=== PATIENT | female | born 1975 | race Caucasian/White ===

== ENCOUNTER → 2019-10-21 | Outpatient (CLI) | payer BC ==
--- NOTE | 2019-10-21 10:17 | Diagnostic Imaging Report ---
EXAMINATION: CT Abdomen Pelvis without contrast. TECHNIQUE: Multiple contiguous axial images were obtained through the abdomen and pelvis without the use of intravenous contrast. All CT scans use one or more of the following dose optimizing techniques: automated exposure control, MA and/or KvP adjustment based on a patient size and exam type, or iterative reconstruction. HISTORY: Left flank pain. COMPARISON: None available. FINDINGS: Limited views of the lower thorax are unremarkable. The liver is normal without focal lesion. There is no biliary ductal dilation. Gallbladder is normal. Pancreas is normal. Spleen is normal. There is a 3.3 cm left adrenal adenoma. There are bilateral 3 mm nonobstructing renal stones. There are no ureteral stones. There is no hydronephrosis. Urinary bladder is normal. Visualized bowel is normal in caliber without obstruction or inflammation. No free fluid or air. No abdominal or pelvic lymphadenopathy. Aorta is normal in caliber without aneurysm. There are no suspicious osseus lesions. IMPRESSION: 1. Bilateral nonobstructing renal stones, no ureteral calculi. 2. Benign left adrenal adenoma measuring 3.3 cm. Dictated by: Dictated on workstation # [id number]
== END ==
LOC: RAD 09:46
DX: D35.02 Benign neoplasm of left adrenal gland (principal); N20.0 Calculus of kidney
CPT/HCPCS: 74176

== ENCOUNTER 2019-10-26 14:30 | Outpatient (RCR) | payer BC ==
[2019-10-26 15:02] LABS: BUN/CREATININE RATIO 19; CALCIUM 9.5 MG/DL (8.5-10.1); CARBON DIOXIDE 25 MMOL/L (21-32); CHLORIDE 105 MMOL/L (98-107); CREATININE SERUM 0.73 MG/DL (0.60-1.30); GFR ESTIMATED > 60; GLUCOSE 93 MG/DL (70-105); PHOSPHORUS 3.7 MG/DL (2.3-4.7); POTASSIUM 3.9 MMOL/L (3.6-5.0); SODIUM 141 MMOL/L (135-145); URIC ACID 6.2 MG/DL (2.6-7.2)
== END 2020-01-24 | disposition home or self-care (01) ==
LOC: LAB 14:30
PROVIDERS: ATTEND Urology
DX: N20.0 Calculus of kidney (principal)
CPT/HCPCS: 36415; 80048; 83970; 84100; 84550

== ENCOUNTER → 2019-10-26 | Outpatient (CLI) | payer BC ==
--- NOTE | 2019-10-26 13:11 | Diagnostic Imaging Report ---
INDICATION: Nephrolithiasis. EXAMINATION: KUB at 12:58 PM. FINDINGS: The bowel gas pattern is normal. There is a moderate amount of stool in the colon which overlies the kidneys. There is a 3.5 mm opacity projecting over the upper pole of the right kidney that could be a calculus. IMPRESSION: Questionable right nephrolithiasis. Dictated by: Dictated on workstation # [id number]
== END ==
LOC: RAD 12:29
PROVIDERS: ATTEND Urology
DX: N20.0 Calculus of kidney (principal)
CPT/HCPCS: 74018

== ENCOUNTER 2021-03-15 13:21 | Emergency (ER) | payer BC, OTHER ==
[~2021-03-15] VITALS: Ht 167.4 cm; Wt 104.2 kg
--- OUTSIDE RECORDS SUMMARY | 2021-03-15 13:30 | XMS REPORT | Clinical Summary ---
Author Author [facility] Organization [facility] Address Unknown Phone Unavailable Care Team Providers Care Lap Maker Name Role Phone Servando Diaz MD Unavailable Viridiana Napoles MD PCP Source Comments Some departments are not documenting in the electronic medical record. If you d o not see the information that you expected, contact Release of Information in [facility] freee Information Management department at [phone] for further assistan ce in locating additional records.[facility] Allergies Comments Active Allergy Reactions Severity Noted Date Codeine HIVES 03/10/2012 Latex UNKNOWN 03/10/2012 Penicillin G HIVES 03/10/2012 Medications End Date Status Medication Sig Dispensed Refills Start Date Active traZODone (DESYREL) 100 Take 100 mg 0 mg tablet by mouth at bedtime daily. Active clonazePAM (KLONOPIN) 1 Take 1 mg by 0 mg tablet mouth daily as needed. Active PARoxetine (PAXIL) 10 mg Take 1 Tab by 1 Tab 3 tablet mouth daily. 2 Active Problems Problem Noted Date Depression 03/19/2012 Spells 03/19/2012 Overdose drug 03/19/2012 Social History Date Tobacco Use Types Packs/Day Years Used Former Smoker Cigarettes 0.5 17 Sex Assigned at Date Recorded Not on file Last Filed Vital Signs Reading Time Taken Comments Vital Sign 115/76 03/16/2012 11:54 AM [employer] Blood Pressure 72 03/16/2012 12:00 PM [employer] Pulse 36.3 C (97.3 F) 03/16/2012 11:54 AM [employer] Temperature - - Respiratory Rate 99% 03/16/2012 11:54 AM [employer] Oxygen Saturation - - Inhaled Oxygen Concentration 90.2 kg (198 lb 13.7 oz) 03/10/2012 6:02 PM [employer] Weight 167.6 cm (5' 6") 03/10/2012 6:02 PM [employer] Height 32.1 03/10/2012 6:02 PM [employer] Body Mass Index Plan of Treatment Health Maintenance Due Date Last Done Comments HIV SCREENING 1990 DTAP/TDAP VACCINES (1 - 1993 Tdap) HEPATITIS C SCREENING 1993 PHYSICAL (COMPREHENSIVE) 1993 EXAM CERVICAL CANCER SCREENING 01/14/1996 BREAST CANCER SCREENING 2015 INFLUENZA VACCINE 11/05/2020 Results Not on filefrom Last 3 Months Advance Directives Patient Clerk General Explanation Type Date Recorded Advance 08/02/2014 1:59 PM Directive/DPOA Date Inactivated Comments Code Status Date Activated 03/16/2012 4:32 PM Full Code 03/10/2012 5:58 PM Provider has discussed Code Status No, more discussi on w/Patient or Family? needed Care Teams Start Date End Date Lap Maker Relationship Specialty 08/02/14 Viridiana Napoles MD PCP - General [address] [address] 03/10/12 Servando Diaz MD Neurology [address] [place], [place] [id number]
--- OUTSIDE RECORDS SUMMARY | 2021-03-15 13:30 | XMS REPORT | Clinical Summary ---
Author Author [facility] Organization [facility] Address Unknown Phone Unavailable Care Team Providers Care Washer Carcass Name Role Phone PCP Unavailable Allergies Not on File Medications Not on file Active Problems Not on file Social History Date Tobacco Use Types Packs/Day Years Used Never Assessed Sex Assigned at Date Recorded Not on file Last Filed Vital Signs Not on file Plan of Treatment Not on file Results Not on filefrom Last 3 Months
--- NOTE | 2021-03-15 13:43 | ED General ---
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 The injuries occurred at work just prior to ED arrival while attempting to apprehend a pit bull. The pitbull has not been vaccinated for rabies and is currently under quarantine. Patient has puncture wounds consistent with front canine in her left thigh and deep abrasions/excoriations consistent with dog bite to right bicep. Patient with moderate bruising and swelling to these locations. Bleeding controlled. Patient's tetanus is out of date. No other symptoms or complaints. Timing/Duration: 1 Hour Severity: Moderate Modifying Factors: improves with Other Associated Systoms: Other Allergies and Home Medications Allergies Coded Allergies: Penicillins (Verified Allergy, Unknown, 03/15/21) Patient Home Medication List Home Medication List Reviewed: Yes Review of Systems Review of Systems Constitutional: see HPI Skin: see HPI Physical Exam Vital Signs Vital Signs - First Documented 03/15/21 13:28 Temp 36.5 Pulse 107 Resp 16 B/P (MAP) 153/97 (115) Pulse Ox 95 O2 Delivery Room Air Capillary Refill : Height, Weight, BMI Height: '" Weight: lbs. oz. kg; BMI Method: General Appearance: No Apparent Distress, WD/WN Eyes: Bilateral Eye Normal Inspection, Bilateral Eye PERRL, Bilateral Eye EOMI HEENT: PERRL/EOMI Respiratory: Lungs Clear Extremity: Other (Left anterior mid thigh, imprint bites consistent with front canine. Wounds are well approximated with minimal soft tissue defect. Right medial bicep excoriation/deep abrasions consistent with dog bite. Moderate bruising and swelling to both regions. Bleeding is controlled, wounds are clean.) Focused Exam Sepsis Stage: Ruled Out Progress/Results/Core Measures Suspected Sepsis SIRS Temperature: Pulse: Respiratory Rate: Blood Pressure / Mean: Results/Orders My Orders Orders - ITA MURCIA DO Doxycycline Hyclate Tablet (Vibramycin T (03/15/21 13:45) Ibuprofen Tablet (Motrin Tablet) (03/15/21 14:00) Dipht,Pertuss(Acell),Tet Adult (Boostrix (03/15/21 14:15) Medications Given in ED Current Medications Medications Dose Ordered Sig/Nikkie Route Start Time Stop Time Status Last Admin Dose Admin Ibuprofen 800 mg ONCE ONCE PO 03/15/21 14:00 03/15/21 14:01 DC 03/15/21 14:00 800 MG Vital Signs/I&O 03/15/21 13:28 Temp 36.5 Pulse 107 Resp 16 B/P (MAP) 153/97 (115) Pulse Ox 95 O2 Delivery Room Air Capillary Refill : Departure Communication (Admissions) Animal bites clean. Antibiotics and pain medication given. Tetanus updated. Typical wound care/animal bite instructions provided. Patient is well acquainted with the rabies protocol. She verbalizes understanding and agreement discharge instructions prior to departure Impression Primary Impression: Dog bite Disposition: HOME, SELF-CARE Condition: Stable Departure-Patient Inst. Decision time for Depature: 14:11 Referrals: NO,LOCAL PHYSICIAN (PCP/Family) Primary Care Physician Patient Instructions: Animal Bites ED Add. Discharge Instructions: Please take ibuprofen for pain and doxycycline as prescribed. Keep wounds clean covered in bandage. Follow-up with PCP or work comp physician for reevaluation and further recommendations. Return to the ED if signs of infection. All discharge instructions reviewed with patient and/or family. Voiced understanding. Scripts Doxycycline Hyclate (Doxycycline Hyclate) 100 Mg Tablet 100 MG PO BID, #20 TAB 0 Refills Prov: ITA MURCIA DO 03/15/21 ITA MURCIA DO Mar 15, 2021 13:43
[2021-03-15] MEDS ORDERED: DOXYCYCLINE 100 MG (VIBRAMYCIN) TABLET PO NR (13:45)
[2021-03-15] MEDS ORDERED: IBUPROFEN 800 MG (MOTRIN) TAB PO ONE (14:00)
[2021-03-15] MEDS ORDERED: DOXY100T2 PO (14:13)
[2021-03-15] MEDS ORDERED: TETANUS,DIPTH,PERTUSS P/F (BOOSTRIX) 0.5 ML VIAL IM ONE (14:15)
[2021-03-15 14:23] VITALS: BP 153/97
== END 2021-03-15 14:17 | disposition home or self-care (01) ==
LOC: EDUNIT# 13:21 → ER FS 13:24
DX: S71.152A Open bite, left thigh, initial encounter (principal); Z23 Encounter for immunization; W54.0XXA Bitten by dog, initial encounter
CPT/HCPCS: 90715; 99283

== ENCOUNTER 2021-08-26 15:40 | Emergency (ER) | payer BC, OTHER ==
[~2021-08-26] VITALS: Ht 165 cm; Wt 82.0 kg
[~2021-08-26 15:40] MED LIST: DOXY100T2 PO
[2021-08-26 16:01] VITALS: BP 163/106
--- NOTE | 2021-08-26 16:02 | ED Upper Extremity ---
General Chief Complaint: Bite-Animal/Human/Insect Stated Complaint: RT ARM DOG BITE Source: patient History of Present Illness Date Seen by Provider: August 26, 2021 Time Seen by Provider: 15:44 Initial Comments 46-year-old female presenting with complaint of dog bite to the right arm. She was visiting a dog that she had kenneled as a puppy but then it had bit her so it is in [facility] at a rehabilitation program for dogs. She states that she had been with the dog for a few hours but then one of the men at the facility started coming down the murcia. When they did the the dog does not like men and it had tried to get to the man. Since she had him on the leash when he reached the end of the leash he turned around and came after her. He bit down on her right forearm breaking the skin and causing bleeding. She does have bruising and swelling. She feels like there is increased pain if she tries to move her pinky and ring finger on the right hand. She feels like there is tingling and numbness in her pinky and ring finger. This happened over an hour and a half prior to arrival in the ED as she drove all the way here from the incident. She states her tetanus was boosted when she was here a few months ago for the initial dog bite from this animal. Onset: this afternoon Severity: moderate Pain/Injury Location: right forearm Method of Injury: other (dog bite) Modifying Factors: Worse With Movement Allergies and Home Medications Allergies Coded Allergies: Penicillins (Verified Allergy, Unknown, 03/15/21) Patient Home Medication List Home Medication List Reviewed: Yes Clindamycin HCl (Clindamycin HCl) 300 Mg Capsule, 300 MG PO TID Prescribed by: ONEYDA BECK on 08/26/21 1608 Doxycycline Hyclate (Doxycycline Hyclate) 100 Mg Tablet, 100 MG PO BID Prescribed by: ONEYDA BECK on 08/26/21 1608 Hydrocodone/Acetaminophen (Hydrocodone-Acetamin 5-325 mg) 5 Mg-325 Mg Tablet, 1 TAB PO Q6H PRN for PAIN-SEVERE (8-10) Prescribed by: ONEYDA BECK on 08/26/21 1611 Ibuprofen (Ibuprofen) 800 Mg Tablet, 800 MG PO Q8H PRN for PAIN Prescribed by: ONEYDA BECK on 08/26/21 1611 Discontinued Medications Doxycycline Hyclate (Doxycycline Hyclate) 100 Mg Tablet, 100 MG PO BID Prescribed by: ITA MURCIA on 03/15/21 1413 Review of Systems Constitutional: No chills, No fever EENTM: no symptoms reported Respiratory: no symptoms reported Cardiovascular: no symptoms reported Gastrointestinal: no symptoms reported Genitourinary: no symptoms reported Musculoskeletal: see HPI Skin: see HPI Psychiatric/Neurological: See HPI Past Uffxrfe-Cukujr-Ndlipd Hx Patient Social History Tobacco Use?: Yes Tobacco type used: Cigarettes Past Medical History Surgery/Hospitalization HX: Hysterectomy; Back surgery; Jaw fracture; Right arm compound fracture. Physical Exam Vital Signs Vital Signs - First Documented 08/26/21 16:01 Temp 36.5 Pulse 103 Resp 18 B/P (MAP) 163/106 (125) Pulse Ox 97 O2 Delivery Room Air Capillary Refill : Height, Weight, BMI Height: '" Weight: lbs. oz. kg; 37.00 BMI Method: General Appearance: WD/WN, mild distress HEENT: PERRL/EOMI, normal ENT inspection Neck: non-tender, full range of motion, supple, normal inspection Cardiovascular: normal peripheral pulses Elbow/Forearm: Right, abrasions, ecchymosis, limited ROM (due to pain from puncture wounds and bruising to right forearm), pain, soft tissue tenderness, swelling Hand: Right, limited ROM (pinky and ring finger of right hand due to pain in fo rearm with movement. ), stiffness Neurologic/Tendon: other (she has intact light touch on pinky and ring finger of right hand but states that they are tingling. She has minimal movement both flexion and extension of pinky and ring finger of right hand limited by pain in forearm) Neurologic/Psychiatric: alert, oriented x 3 Skin: warm/dry Progress/Results/Core Measures Results/Orders My Orders Orders - ONEYDA BECK MD Ibuprofen Tablet (Motrin Tablet) (08/26/21 16:13) Doxycycline Hyclate Tablet (Vibramycin T (08/26/21 16:13) Clindamycin Capsule (Cleocin Capsule) (08/26/21 16:13) Vital Signs/I&O 08/26/21 16:01 Temp 36.5 Pulse 103 Resp 18 B/P (MAP) 163/106 (125) Pulse Ox 97 O2 Delivery Room Air Progress Progress Note : Progress Note Patient states that the wounds were cleaned with irrigation and hydrogen peroxide at the time of injury. Then she drove to come here to the emergency de partment rather than be seen locally. She has puncture allred on each side of her forearm and hematoma to the right forearm on the flexor surface. She has increased tenderness with palpation and movement. Wounds were cleaned with chlorhexidine scrub soap and sterile water here in the ED. Antibiotic ointment and nonstick dressing was applied and then placed in a aluminum foam volar splint. Counseled to keep the wounds clean and dry and apply antibiotic ointment at least 2-3 times a day. Started on antibiotics for dog bite. Since he states that she has a penicillin allergy will do doxycycline and clindamycin. Prescribed ibuprofen and a few hydrocodone in case she needs something stronger for pain. Advised to check with the clinic this week about her injury and if her symptoms worsen and she has signs of compartment syndrome with increasing pressure then be seen emergently so orthopedics can evaluate her. Otherwise if she is not having improvement then orthopedics may still need to see her and see if she needs an ultrasound or MRI to evaluate for possible torn muscles or nerve or tendon damage. Departure Impression Primary Impression: Open wound of right forearm due to dog bite Additional Impression: Crushing injury of right forearm, initial encounter Disposition: 01 HOME, SELF-CARE Condition: Stable Departure-Patient Inst. Decision time for Depature: 16:01 Referrals: CHRIS VALENZUELA,LOCAL PHYSICIAN (PCP) Primary Care Physician LUDIN STOCK MD [facility] [phone] to make appointment or follow up with your primary care provider Patient Instructions: Animal Bites ED, Wound Care ED Add. Discharge Instructions: Keep wounds clean and covered. Apply antibiotic ointment 2-3 times a day and as needed. Use the splint for the next 7 to 10 days to let the swelling and bruising heal. If you are still having trouble moving your pinky and ring fingers, sensation is not improving, or if you have worsening pain despite the splint, elevation and rest then follow up sooner to see if Orthopedics needs to check the pressure inside your arm. If the pressure builds up too high from the crush injury of the bite and the bruising and swelling you can have the whole hand go numb or have increasing pain that is not improved with medication. Again, if this happens you would need a surgeon to operate on your arm to relieve the pressure Take the full course of antibiotics to treat for dog bite and help prevent infection. All discharge instructions reviewed with patient and/or family. Voiced understanding. Scripts Hydrocodone/Acetaminophen (Hydrocodone-Acetamin 5-325 mg) 5 Mg-325 Mg Tablet 1 TAB PO Q6H PRN for PAIN-SEVERE (8-10) for 5 Days, #20 TAB 0 Refills Prov: ONEYDA BECK MD 08/26/21 Ibuprofen (Ibuprofen) 800 Mg Tablet 800 MG PO Q8H PRN for PAIN, #30 TAB 0 Refills Prov: ONEYDA BECK MD 08/26/21 Clindamycin HCl (Clindamycin HCl) 300 Mg Capsule 300 MG PO TID for dog bite for 10 Days, #30 CAP 0 Refills Prov: ONEYDA BECK MD 08/26/21 Doxycycline Hyclate (Doxycycline Hyclate) 100 Mg Tablet 100 MG PO BID for dog bite for 10 Days, #20 TAB 0 Refills Prov: ONEYDA BECK MD 08/26/21 Work/School Note: Work Release Form Date Seen in the Emergency Department: August 26, 2021 Return to Work: August 27, 2021 Restrictions: Need Release from Doctor Other Restrictions Listed Below: Wear splint and dressing on arm x 1 week. Keep clean & dry Images Extremities-Upper 1 - puncture wound and brusing with abrasion to forearm on both sides. hematoma by the puncture wound on flexor surface ONEYDA BECK MD August 26, 2021 16:02
[2021-08-26] MEDS ORDERED: DOXY100T2 PO (16:08)
[2021-08-26] MEDS ORDERED: CLIN-144 PO (16:08)
[2021-08-26] MEDS ORDERED: ACHD5005 PO (16:11)
[2021-08-26] MEDS ORDERED: IBUP-1780 PO (16:11)
[2021-08-26] MEDS ORDERED: DOXYCYCLINE 100 MG (VIBRAMYCIN) TABLET PO STA (16:13)
[2021-08-26] MEDS ORDERED: IBUPROFEN 800 MG (MOTRIN) TAB PO STA (16:13)
[2021-08-26] MEDS ORDERED: CLINDAMYCIN 150 MG (CLEOCIN) CAP PO STA (16:13)
== END 2021-08-26 16:17 | disposition home or self-care (01) ==
LOC: EDUNIT# 15:40 → ER FS 15:42
DX: S51.851A Open bite of right forearm, initial encounter (principal); W54.0XXA Bitten by dog, initial encounter
CPT/HCPCS: 99283

== ENCOUNTER 2021-12-12 20:15 | Emergency (ER) | payer BC ==
[~2021-12-12] VITALS: Ht 167 cm; Wt 83.9 kg
[~2021-12-12 20:15] MED LIST changes: +ACHD5005 PO; +CLIN-144 PO; +IBUP-1780 PO
[2021-12-12] MEDS ORDERED: ONDANSETRON 4 MG/2 ML (SDV) Z0FRAN IVP ONE (20:30)
[2021-12-12] MEDS ORDERED: LORazepam INJ 2 MG/ML (ATIVAN) VIAL IVP ONE (20:30)
[2021-12-12] MEDS ORDERED: fentaNYL INJ 100 MCG/2 ML AMP IVP ONE (20:30)
[2021-12-12 20:33] LABS: BASOPHILS # (AUTO) 0.1 10^3/uL (0.0-0.1); BASOPHILS % (AUTO) 1 % (0-10); EOSINOPHILS # (AUTO) 0.3 10^3/uL (0.0-0.3); EOSINOPHILS % (AUTO) 3 % (0-10); HEMATOCRIT 43 % (35-52); HEMOGLOBIN 15.3 g/dL (11.5-16.0); LYMPHOCYTES # (AUTO) 4.8 10^3/uL (1.0-4.0); LYMPHOCYTES % (AUTO) 46 % (12-44); MEAN CORPUSCULAR HEMOGLOBIN 31 pg (25-34); MEAN CORPUSCULAR HGB CONC 35 g/dL (32-36); MEAN CORPUSCULAR VOLUME 89 fL (80-99); MONOCYTES # (AUTO) 0.7 10^3/uL (0.0-1.0); MONOCYTES % (AUTO) 7 % (0-12); NEUTROPHILS # (AUTO) 4.5 10^3/uL (1.8-7.8); NEUTROPHILS % (AUTO) 43 % (42-75); PLATELET COUNT 298 10^3/uL (130-400); WHITE BLOOD COUNT 10.4 10^3/uL (4.3-11.0)
[2021-12-12 20:53] LABS: ATYPICAL LYMPHOCYTES 3 %; BAND NEUTROPHILS 2 %; BASOPHILS % (MANUAL) 1 %; EOSINOPHILS % (MANUAL) 3 %; LYMPHOCYTES % (MANUAL) 41 %; MONOCYTES % (MANUAL) 5 %; NEUTROPHILS % (MANUAL) 45 %
[2021-12-12 20:54] LABS: PLATELET ESTIMATE NORMAL; RBC MORPH NORMAL
[2021-12-12 20:56] LABS: BUN/CREATININE RATIO 26; CALCIUM 9.8 MG/DL (8.5-10.1); CARBON DIOXIDE 26 MMOL/L (21-32); CHLORIDE 102 MMOL/L (98-107); GFR ESTIMATED 108; GLUCOSE 107 MG/DL (70-105); POTASSIUM 4.2 MMOL/L (3.6-5.0); SODIUM 142 MMOL/L (135-145)
--- NOTE | 2021-12-12 21:00 | Diagnostic Imaging Report ---
CLINICAL INDICATION: Patient with chest pain, tightness and tingling. EXAM: Portable chest x-ray upright view. COMPARISON: None. FINDINGS: Lungs/pleura: Lungs are clear. There is no pneumothorax. There is no pleural effusion. Mediastinum: Unremarkable. Pulmonary vasculature: Unremarkable. Heart: Unremarkable. Bones/extrathoracic soft tissue: Unremarkable. IMPRESSION: There is no radiographic evidence of acute cardiopulmonary process. Dictated by: Dictated on workstation # [id number]
--- NOTE | 2021-12-12 23:40 | ED Chest Pain ---
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 Pt denies cardiac hx. Denies fever, cough. 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 Pain is described as sharp moderate to severe worse with palpation and deep breathing. Patient denies shortness of breath nausea vomiting or sweats. Reports increased anxiety state. 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 She remains physical exertion at times symptoms began. No history of CAD. Patient is a current smoker. Family history of coronary disease. Timing/Duration: 1/2 hour Severity/Quality: moderate Location: other Radiation: other Activities at Onset: other Prior CP/Workup: other Modifying Factors: improves with other ASA po INFORMATION ASSURANCE OFFICER: No NTG SL INFORMATION ASSURANCE OFFICER: No Allergies and Home Medications Allergies Coded Allergies: Penicillins (Verified Allergy, Unknown, 03/15/21) Patient Home Medication List Home Medication List Reviewed: Yes Clindamycin HCl (Clindamycin HCl) 300 Mg Capsule, 300 MG PO TID Prescribed by: ONEYDA BECK on 08/26/21 1608 Doxycycline Hyclate (Doxycycline Hyclate) 100 Mg Tablet, 100 MG PO BID Prescribed by: ONEYDA BECK on 08/26/21 1608 Hydrocodone/Acetaminophen (Hydrocodone-Acetamin 5-325 mg) 5 Mg-325 Mg Tablet, 1 TAB PO Q6H PRN for PAIN-SEVERE (8-10) Prescribed by: ONEYDA BECK on 08/26/21 1611 Ibuprofen (Ibuprofen) 800 Mg Tablet, 800 MG PO Q8H PRN for PAIN Prescribed by: ONEYDA BECK on 08/26/21 1611 Review of Systems Review of Systems Constitutional: see HPI EENTM: See HPI Respiratory: See HPI Cardiovascular: See HPI Gastrointestinal: See HPI Genitourinary: See HPI Musculoskeletal: see HPI Skin: see HPI Psychiatric/Neurological: See HPI Endocrine: See HPI Hematologic/Lymphatic: See HPI All Other Systems Reviewed Negative Unless Noted: No Past Iyrnqdi-Knlolw-Wwcmat Hx Patient Social History Tobacco Use?: Yes Tobacco type used: Cigarettes Smoking Status: Current Everyday Smoker Use of E-Cig and/or Vaping dev: No Substance use?: No Alcohol Use?: No Pt feels they are or have been: No Immunizations Up To Date First/Initial COVID19 Vaccinat: denies Past Medical History Surgery/Hospitalization HX: Hysterectomy; Back surgery; Jaw fracture; Right arm compound fracture. Physical Exam Vital Signs Vital Signs - First Documented 12/12/21 20:18 Temp 36.4 Pulse 87 Resp 18 B/P (MAP) 134/78 (96) Pulse Ox 98 O2 Delivery Room Air Capillary Refill : Less Than 3 Seconds Height, Weight, BMI Height: '" Weight: lbs. oz. kg; 30.00 BMI Method: General Appearance: No Apparent Distress, WD/WN, Anxious HEENT: PERRL/EOMI, TMs Normal Neck: Full Range of Motion, Normal Inspection, Supple Respiratory: Chest Non Tender, Lungs Clear, Normal Breath Sounds Cardiovascular: Regular Rate, Rhythm, No Edema Gastrointestinal: Non Tender, Soft Extremity: Normal Capillary Refill, Normal Inspection Neurologic/Psychiatric: Alert, Oriented x3 Focused Exam Sepsis Stage: Ruled Out Progress/Results/Core Measures Results/Orders Lab Results Laboratory Tests Test 12/12/21 20:25 12/12/21 23:20 Range/Units White Blood Count 10.4 4.3-11.0 10^3/uL Red Blood Count 4.88 3.80-5.11 10^6/uL Hemoglobin 15.3 11.5-16.0 g/dL Hematocrit 43 35-52 % Mean Corpuscular Volume 89 80-99 fL Mean Corpuscular Hemoglobin 31 25-34 pg Mean Corpuscular Hemoglobin Concent 35 32-36 g/dL Red Cell Distribution Width 12.8 10.0-14.5 % Platelet Count 298 130-400 10^3/uL Mean Platelet Volume 10.0 9.0-12.2 fL Immature Granulocyte % (Auto) 1 % Neutrophils (%) (Auto) 43 42-75 % Lymphocytes (%) (Auto) 46 H 12-44 % Monocytes (%) (Auto) 7 0-12 % Eosinophils (%) (Auto) 3 0-10 % Basophils (%) (Auto) 1 0-10 % Neutrophils # (Auto) 4.5 1.8-7.8 10^3/uL Lymphocytes # (Auto) 4.8 H 1.0-4.0 10^3/uL Monocytes # (Auto) 0.7 0.0-1.0 10^3/uL Eosinophils # (Auto) 0.3 0.0-0.3 10^3/uL Basophils # (Auto) 0.1 0.0-0.1 10^3/uL Immature Granulocyte # (Auto) 0.1 0.0-0.1 10^3/uL Neutrophils % (Manual) 45 % Lymphocytes % (Manual) 41 % Monocytes % (Manual) 5 % Eosinophils % (Manual) 3 % Basophils % (Manual) 1 % Band Neutrophils 2 % Atypical Lymphocytes 3 % Platelet Estimate NORMAL Blood Morphology Comment NORMAL D-Dimer 0.24 0.00-0.49 UG/ML Sodium Level 142 135-145 MMOL/L Potassium Level 4.2 3.6-5.0 MMOL/L Chloride Level 102 98-107 MMOL/L Carbon Dioxide Level 26 21-32 MMOL/L Anion Gap 14 5-14 MMOL/L Blood Urea Nitrogen 18 7-18 MG/DL Creatinine 0.70 0.60-1.30 MG/DL Estimat Glomerular Filtration Rate 108 BUN/Creatinine Ratio 26 Glucose Level 107 H 70-105 MG/DL Calcium Level 9.8 8.5-10.1 MG/DL Troponin I < 0.30 <0.30 NG/ML My Orders Orders - ITA MURCIA DO Cbc With Automated Diff (12/12/21 20:18) Basic Metabolic Panel (12/12/21 20:18) Troponin I Fs (12/12/21 20:18) Ekg Tracing (12/12/21 20:18) Chest 1 View Ap/Pa Only (12/12/21 20:18) Fibrin Degradation Products (12/12/21 20:18) Ondansetron Injection (Zofran Injectio (12/12/21 20:30) Fentanyl Inj (Sublimaze Injection) (12/12/21 20:30) Lorazepam Injection (Ativan Injection) (12/12/21 20:30) Manual Differential (12/12/21 20:25) Troponin I Fs (12/12/21 23:00) Medications Given in ED Current Medications Medications Dose Ordered Sig/Nikkie Route Start Time Stop Time Status Last Admin Dose Admin Fentanyl Citrate 50 mcg ONCE ONCE IVP 12/12/21 20:30 12/12/21 20:31 DC 12/12/21 20:33 50 MCG Lorazepam 1 mg ONCE ONCE IVP 12/12/21 20:30 12/12/21 20:31 DC 12/12/21 20:31 1 MG Ondansetron HCl 4 mg ONCE ONCE IVP 12/12/21 20:30 12/12/21 20:31 DC 12/12/21 20:31 4 MG Vital Signs/I&O 12/12/21 12/12/21 12/12/21 20:18 20:45 21:45 Temp 36.4 Pulse 87 81 71 Resp 18 16 20 B/P (MAP) 134/78 (96) 128/69 (88) 106/56 (73) Pulse Ox 98 96 94 O2 Delivery Room Air Room Air Room Air Blood Pressure Mean: 73 Departure Communication (Admissions) Chest x-ray: No acute cardiopulmonary disease per radiology report : Normal sinus rhythm, no acute ST-T wave changes on preliminary ED review Patient with atypical nonexertional chest pain. Patient clinically anxious with secondary features of panic on ED arrival. Pain resolved with fentanyl and Ativan. Patient resting comfortably. EKG and repeat troponin remain negative. Patient with heart score of 2. Patient is low risk so suitable for outpatient follow-up. Recommendations are supportive care watchful waiting PCP follow-up to coordinate outpatient testing. Return precautions reviewed. Patient verbalizes understanding agreement discharge instructions prior to departure. Impression Primary Impression: Chest pain Disposition: 01 HOME, SELF-CARE Condition: Stable Departure-Patient Inst. Decision time for Depature: 23:40 Referrals: NO,LOCAL PHYSICIAN (PCP/Family) Primary Care Physician Patient Instructions: Chest Pain Add. Discharge Instructions: You were evaluated in the emergency department for chest pain. EKG lab and imaging studies were performed and are nondiagnostic. The exact cause of your symptoms has not been determined. Given your risk factors for coronary disease, it is important that you follow-up with your PCP for reevaluation and coordination of additional outpatient testing. In the meantime if you develop new or worsening symptoms, return to the emergency department immediately. All discharge instructions reviewed with patient and/or family. Voiced underst anding. ITA MURCIA DO Dec 12, 2021 23:40
[2021-12-12 23:59] VITALS: BP 110/66
== END 2021-12-12 23:59 | disposition home or self-care (01) ==
LOC: EDUNIT# 20:15 → ER FS 20:16
DX: R07.89 Other chest pain (principal); F17.210 Nicotine dependence, cigarettes, uncomplicated; Z82.49 Family history of ischemic heart disease and other diseases of the circulatory system; Z28.310 Unvaccinated for COVID-19
CPT/HCPCS: 36415; 71045; 80048; 84484; 85007; 85027; 85379; 93005

== ENCOUNTER → 2022-12-02 | Outpatient (CLI) | payer OTHER ==
[2022-12-02 15:24] LABS: BASOPHILS % (AUTO) 0 % (0-10); EOSINOPHILS # (AUTO) 0.2 10^3/uL (0.0-0.3); EOSINOPHILS % (AUTO) 3 % (0-10); HEMATOCRIT 40 % (35-52); HEMOGLOBIN 13.8 g/dL (11.5-16.0); LYMPHOCYTES # (AUTO) 3.7 10^3/uL (1.0-4.0); LYMPHOCYTES % (AUTO) 67 % (12-44); MEAN CORPUSCULAR HEMOGLOBIN 33 pg (25-34); MEAN CORPUSCULAR HGB CONC 34 g/dL (32-36); MEAN CORPUSCULAR VOLUME 95 fL (80-99); MEAN PLATELET VOLUME 9.3 fL (9.0-12.2); MONOCYTES # (AUTO) 0.2 10^3/uL (0.0-1.0); MONOCYTES % (AUTO) 4 % (0-12); NEUTROPHILS # (AUTO) 1.4 10^3/uL (1.8-7.8); NEUTROPHILS % (AUTO) 26 % (42-75); PLATELET COUNT 226 10^3/uL (130-400); WHITE BLOOD COUNT 5.5 10^3/uL (4.3-11.0)
[2022-12-02 15:25] LABS: BILIRUBIN,URINE NEGATIVE (NEGATIVE); CLARITY,URINE CLEAR; COLOR,URINE YELLOW; GLUCOSE, URINE (UA) NEGATIVE (NEGATIVE); KETONES,URINE NEGATIVE (NEGATIVE); LEUKOCYTE ESTERASE ,URINE NEGATIVE (NEGATIVE); NITRITE,URINE NEGATIVE (NEGATIVE); PROTEIN,URINE 1+ (NEGATIVE)
[2022-12-02 15:35] LABS: BACTERIA,URINE TRACE /HPF; RBC,URINE 0-2 /HPF
[2022-12-02 15:44] LABS: ATYPICAL LYMPHOCYTES 6 %; EOSINOPHILS % (MANUAL) 2 %; LYMPHOCYTES % (MANUAL) 60 %; MONOCYTES % (MANUAL) 6 %; NEUTROPHILS % (MANUAL) 26 %
[2022-12-02 15:45] LABS: PLATELET ESTIMATE Adequate; POLYCHROMASIA SLIGHT
[2022-12-02 15:53] LABS: BILIRUBIN,TOTAL 0.4 MG/DL (0.1-1.0); BUN/CREATININE RATIO 18; CALCIUM 9.6 MG/DL (8.5-10.1); CARBON DIOXIDE 25 MMOL/L (21-32); CHLORIDE 101 MMOL/L (98-107); CREATININE SERUM 0.79 MG/DL (0.60-1.30); GFR ESTIMATED 93; GLUCOSE 100 MG/DL (70-105); SODIUM 139 MMOL/L (135-145)
[2022-12-02 15:54] LABS: ALANINE AMINOTRANSFERASE 36 U/L (0-55); ALBUMIN 4.6 GM/DL (3.2-4.5); ALKALINE PHOSPHATASE 128 U/L (40-136); TOTAL PROTEIN 7.4 GM/DL (6.4-8.2)
== END ==
LOC: LAB FS 14:57
PROVIDERS: ATTEND Nurse Practitioner Family
DX: R74.8 Abnormal levels of other serum enzymes (principal); R10.9 Unspecified abdominal pain; Z87.442 Personal history of urinary calculi; Z86.018 Personal history of other benign neoplasm
CPT/HCPCS: 36415; 80053; 81000; 85007; 85027